=== PATIENT | female | born 1990 | race Caucasian/White ===

== ENCOUNTER 2021-06-13 16:55 | Day surgery (SDC) | payer OTHER ==
[2021-06-13 17:24] VITALS: BMI 31.6
== END 2021-06-13 20:48 | disposition home or self-care (01) ==
LOC: CSHLD/OP 16:55
PROVIDERS: ATTEND Student in an Organized Health Care Education/Training Program
DX: O36.8120 Decreased fetal movements, second trimester, not applicable or unspecified (principal); Z3A.27 27 weeks gestation of pregnancy; Z79.899 Other long term (current) drug therapy; Z88.1 Allergy status to other antibiotic agents
CPT/HCPCS: 76815